=== PATIENT | female | born 1970 | race Caucasian/White ===

== ENCOUNTER 2020-04-10 04:18 | Emergency (ER) | payer MEDICAID, SELFPAY ==
[2020-04-10 04:24] VITALS: BP 122/87; PULSE 93; RESP 18; TEMP 36.1; O2SAT 96; BMI 21.6
--- NOTE | 2020-04-10 04:35 | CTR_ITS ---
PROCEDURE INFORMATION: Exam: CT Maxillofacial With Contrast Exam date and time: 04/10/2020 4:48 AM Age: 49 years old Clinical indication: Jaw pain and maxilla pain; Additional info: Dental infection evaluating for facial/dental abscess TECHNIQUE: Imaging protocol: Computed tomography images of the face with intravenous contrast. Radiation optimization: All CT scans at this facility use at least one of these dose optimization techniques: automated exposure control; mA and/or kV adjustment per patient size (includes targeted exams where dose is matched to clinical indication); or iterative reconstruction. Contrast material: OMNI 300; Contrast volume: 95 ml; Contrast route: INTRAVENOUS (IV); COMPARISON: No relevant prior studies available. RADIATION DOSE METRICS: Total DLP (mGy-cm): 754.45 FINDINGS: Orbital cavity: Orbits are normal. Globes are unremarkable. Bones/joints: No acute fracture. Paranasal sinuses: Mild right maxillary sinus disease which may be odontogenic. Soft tissues: Soft tissue swelling over the right mandible and right maxilla including the right platysma muscle with no obvious soft tissue abscess. Dental: Poor dentition with one or more areas of cavities of the enamel portion of the tooth and/or periapical lucencies/tooth abscesses. Periapical lucency/tooth abscess over the most posterior remaining right maxillary tooth which could be the 1st molar or 2 adjacent premolars with 3 roots containing periapical abscesses. Periapical lucency/tooth abscess involving the right mandibular 1st premolar. Lymph nodes: Shotty right submandibular and cervical adenopathy which is larger than the left however within normal limits by CT criteria. Probable reactive adenopathy. CT/CT facial bones w [facility] [place] [id number] IMPRESSION: 1. Poor dentition with one or more areas of cavities of the enamel portion of the tooth and/or periapical lucencies/tooth abscesses. 2. Mild right maxillary sinus disease which may be odontogenic. 3. Soft tissue swelling over the right mandible and right maxilla including the right platysma muscle with no obvious soft tissue abscess. 4. Periapical lucency/tooth abscess over the most posterior remaining right maxillary tooth which could be the 1st molar or 2 adjacent premolars with 3 roots containing periapical abscesses. 5. Periapical lucency/tooth abscess involving the right mandibular 1st premolar. 6. Shotty right submandibular and cervical adenopathy which is larger than the left however within normal limits by CT criteria. Probable reactive adenopathy. Radiation Dose CTDIVOL = (mGy): DLP = 754.45 (mGy-cm)
--- NOTE | 2020-04-10 04:45 | ED_ITS ---
Documented by User: Cecilia Lunsford 04/10/20 04:47 HPI - Dental/Oral General: Chief complaint: Dental/Oral Stated complaint: oral/dental pain on right side of face Time Seen by Provider: 04/10/20 04:32 History of Present Illness: Associated symptoms: Denies ear or mastoid pain, fever(s), odynophagia or tongue swelling Review of Systems Const: Denies: fever(s), chills, body aches, fatigue, malaise or diaphoresis Eyes: Denies: change in vision, blurry vision, photophobia, eye discomfort, eye discharge, eye redness or yellow eyes ENMT: Reports: other (Facial pain as noted in HPI.); Denies: throat pain, odynophagia, hoarseness, swelling of lips/tongue, ear or mastoid pain, ear discharge, change in hearing or nasal discharge Card: Denies: chest pain, palpitations, irregular heart rhythm, edema, lightheadedness, syncope, pre-syncope, dyspnea on exertion or orthopnea Resp: Denies: dyspnea, productive cough, non-productive cough, wheezing, hemoptysis or chest congestion GI: Denies: abdominal pain, nausea, vomiting, hematemesis, coffee ground emesis, heartburn, diarrhea, constipation, GI cramping, hematochezia or melena : Denies: flank pain, dysuria, urinary frequency, urinary urgency or hematuria Musc: Denies: neck pain, back pain, extremity pain, extremity swelling, joint pain, joint swelling, joint redness, joint warmth or joint stiffness Skin/Breast: Denies: rash, pruritus, erythema, skin pain or skin tenderness Neuro: Denies: headache(s), numbness in extremities, weakness in extremities, sensory changes, lack of coordination, difficulty walking, dizziness, vertigo, confusion, Slurred speech present or seizure-like activity [place]/Lymph: Denies: easy bruising, easy bleeding, petechiae, purpura or enlarged lymph nodes All/Imm: Denies: urticaria, throat swelling, tongue swelling, facial swelling or acute wheezing PFSH ED PFSH: Medical History No pertinent past medical history Social History Smoking and tobacco status: current every day smoker Physical Exam Const: COMMON NORMALS: no acute distress, patient oriented x3, no limitations and alert GENERAL APPEARANCE: cooperative HENMT: COMMON NORMALS: normocephalic, atraumatic, external ears normal, EAC's normal and Normal external nose present HEAD & SCALP: normal to inspection, normocephalic and atraumatic FACE & SINUS: other (Right-sided facial swelling with skin erythema) NOSE: Normal external nose present and Normal nares present EXTERNAL EAR: Yes external ears normal EXTERNAL AUDITORY CANAL: EAC's normal MOUTH: Normal oral and palatal mucosa present, lip normal and tongue normal TEETH & GINGIVA: Yes other (Overall poor dentition throughout the mouth with areas of maximal pain ove) Eye: COMMON NORMALS: Equal, round and reactive pupils present and conjunctivae normal GENERAL EYE: appearance normal, both eyes and all related structures ALIGNMENT: Yes alignment normal PERIORBITAL: periorbital findings normal EYELID: eyelids normal CONJUNCTIVA: Yes conjunctivae normal SCLERA: sclerae normal PUPIL: Yes Equal, round and reactive pupils present Neck/C-Spine: COMMON NORMALS: full ROM, no lymphadenopathy, supple, no meningeal signs and no JVD GENERAL: Yes normal visual inspection and Yes trachea midline Chest: COMMONS NORMALS: normal inspection of the chest and normal palpation of entire chest wall Resp: COMMON NORMALS: normal respiratory effort, No retractions, No use of accessory muscles and clear to auscultation bilaterally EFFORT & INSPECTION: Yes able to speak in complete sentences and Yes symmetric chest movement AUSCULTATION: clear to auscultation bilaterally, no crackles, no rales, no rhonchi and no wheezes Cardio: COMMON NORMALS: no JVD, regular rate, regular rhythm, S1 normal heart sound present and S2 normal heart sound present RATE: regular rate RHYTHM: regular rhythm HEART SOUNDS: S1 normal heart sound present, S2 normal heart sound present, no click, no gallops, no murmurs and no rubs GI: COMMON NORMALS: Soft to palpation and No hepatosplenomegaly present PALPATION: Yes Soft to palpation, No Tenderness to palpation present (GI), No Guarding due to palpation present (GI), No Rigid due to palpation, Yes No hepatosplenomegaly present, No Hernia present, No Palpable mass present and No Pulsatile mass present : COMMON NORMALS: Yes no CVA tenderness BLADDER/KIDNEY EXAM: Yes no CVA tenderness EXTERNAL FEMALE EXAM: No Hernia present Back/Pelvis: COMMON NORMALS: no CVA tenderness, thoracic and lumbar spine normal to inspection, no thoracic nor lumbar tenderness and thoraco-lumbar ROM normal Extremity: COMMON NORMALS: normal to inspection, full ROM, capillary refill normal, no joint enlargement, no clubbing, cyanosis or edema and no calf tenderness Neuro: COMMON NORMALS: patient oriented x3, CN's II-XII intact bilaterally, moves all extremities, no focal motor deficits and no sensory deficits noted SENSORIUM/ORIENTATION: Yes alert MENINGEAL SIGNS: Yes no meningeal signs SPEECH: speech normal Psych: COMMON NORMALS: mental status grossly normal, Normal thought process present, cooperative, normal affect, speech normal and activity/motor behavior normal SPEECH: Yes normal speech THOUGHT PROCESS: Normal thought process present Skin: COMMON NORMALS: no rashes or lesions noted, turgor normal, no jaundice, no petechiae and no mottling GENERAL SKIN EXAM: no rashes or lesions noted and turgor normal Course Vital Signs: Vital signs: Vital Signs Temperature 97.0 F L 04/10/20 04:24 Pulse Rate 76 04/10/20 07:16 Respiratory Rate 16 04/10/20 07:16 Blood Pressure 108/78 04/10/20 07:16 Pulse Oximetry 95 04/10/20 07:16 MDM - Dental/Oral Lab Data: Labs: Lab Results 04/10/20 04/10/20 04/10/20 Range/Units 04:55 04:55 04:55 WBC 9.6 (4.0-10.0) 10^3/ uL RBC 3.98 L (4.1-5.3) 10^6/u L Hgb 9.8 L (11.5-15.3) g/dL Hct 31.1 L (37.0-47.0) % MCV 78.1 L (81-99) fL MCH 24.6 L (28.0-34.0) pg MCHC 31.5 (30.0-36.0) g/dL RDW 16.6 H (12.1-15.1) % Plt Count 227 (130-400) 10^3/c mm MPV 11.0 H (7.4-10.4) fL Neut % (Auto) 68.9 % Lymph % (Auto) 20.9 % [place] % (Auto) 7.5 % Eos % (Auto) 2.3 % Baso % (Auto) 0.2 % Neut # (Auto) 6.62 (1.8-7.7) 10^3/u L Lymph # (Auto) 2.0 (0.8-4.8) 10^3/u L [place] # (Auto) 0.7 (0.2-0.9) 10^3/u L Eos # (Auto) 0.2 (0.0-0.8) 10^3/u L Baso # (Auto) 0.0 (0.0-0.1) 10^3/u L Nucleated RBC % (a uto) 0 % Nucleated RBCs # 0.0 /100WBC Sodium 141 (136-145) mmol/L Potassium 3.8 (3.5-5.1) mmol/L Chloride 105 (98-107) mmol/L Carbon Dioxide 24 (22-29) mmol/L Anion Gap 15.8 (5-19) BUN 6 (6-20) mg/dL Creatinine 0.6 (0.5-0.9) mg/dL GFR Calculation 105.4 (90-130) mL/min Glucose 103 (65-115) mg/dL Calculated Osmolal ity 290 (285-295) mOsm/k g Lactic Acid 1.0 (0.5-2.2) mmol/L Calcium 9.1 (8.5-10.5) mg/dL Total Bilirubin 0.3 (0.15-1.2) mg/dL AST 18 (0-32) U/L ALT 17 (0-33) U/L Alkaline Phosphata se 26 L (35-105) IU/L Total Protein 6.9 (6.6-8.7) g/dL Albumin 4.3 (3.5-5.2) g/dL Globulin 2.6 (1.3-4.6) g/dL Discharge Plan Discharge Patient Disposition: Home Clinical Impression: Dental caries Condition: Stable Prescriptions: New Augmentin 875-125 mg tablet 1 tab PO BID 10 Days Qty: 20 RF: 0 Discontinued cephalexin 750 mg capsule 750 mg PO Q12H Qty: 20 RF: 0 No Action Cleocin HCl 150 mg capsule 300 mg PO Q6H 10 Days Qty: 80 RF: 0 Gatzke 5-325 mg tablet 1 tab PO Q6H PRN (Reason: pain) 5 Days Qty: 12 RF: 0 Discharge Orders: Discharge Order (Routine); Ordered 04/10/20 Ordered By: Paramjit Hines Discharge Diet: Usual diet Discharge Activity: Increase activity as tolerated Activity Restrictions/Additional Instructions: Follow-up with your primary care doctor as needed follow-up with a dentist as soon as you are able Sign Out Sign Out Data: Patient Sign Out occurred on 04/10/20 at 06:18. Patient's care was discussed, and care was transferred from to Paramjit Hines DO. Coding Level of Care Code ED Assistant Program Manager for [facility] Fwd Exam Comprehensive Documented by User: Paramjit Hines DO 04/12/20 06:47 HPI - Dental/Oral General: Chief complaint: Dental/Oral Stated complaint: oral/dental pain on right side of face Time Seen by Provider: 04/10/20 04:32 History of Present Illness: HPI Narrative: 49-year-old female presented to the emergency room with complaint right-sided facial swelling and dental pain. Is initially seen by Dr. Suh care assumed at change of shift. She has large amount of swelling in the face is a CT pending when I assumed care. Onset (ago): hour(s) Duration: constant Severity: moderate Relieving factors: NSAIDs Exacerbating factors: nothing Context: history of dental caries Associated symptoms: Reports gum swelling; Denies ear or mastoid pain, fever(s), odynophagia, sore throat or tongue swelling Review of Systems Const: Denies: fever(s) ENMT: Denies: odynophagia or ear or mastoid pain Card: Denies: chest pain, edema, dyspnea on exertion or orthopnea Resp: Denies: dyspnea, productive cough or non-productive cough GI: Denies: abdominal pain, nausea, vomiting, hematemesis, coffee ground emesis, diarrhea, constipation, bloating, hematochezia or melena : Denies: flank pain, difficulty voiding, dysuria, urinary frequency or urinary urgency Skin/Breast: Denies: rash or pruritus All/Imm: Denies: tongue swelling PFSH ED PFSH: Medical History No pertinent past medical history Social History Smoking and tobacco status: current every day smoker Physical Exam Const: COMMON NORMALS: no acute distress GENERAL APPEARANCE: cooperative and comfortable ORIENTATION/CONSCIOUSNESS: Yes awake, Yes oriented to person, Yes oriented to place and Yes oriented to time HENMT: COMMON NORMALS: normocephalic, atraumatic and hearing grossly normal bilaterally HEAD & SCALP: normocephalic and atraumatic OTHER: Patient was falling on the right side of the face extending from zygomatic arch up through the eyelid as well as downward on the cheeks or swelling in the upper gumline on the right side no identifiable masses or abscesses. There is no submandibular lymphadenopathy Neck/C-Spine: COMMON NORMALS: no JVD Resp: COMMON NORMALS: normal respiratory effort, No retractions, No use of accessory muscles and clear to auscultation bilaterally AUSCULTATION: clear to auscultation bilaterally Cardio: COMMON NORMALS: no JVD, regular rate, regular rhythm and No murmurs present (Cardio) RATE: regular rate RHYTHM: regular rhythm Extremity: COMMON NORMALS: normal to inspection, capillary refill normal, no clubbing, cyanosis or edema, no calf tenderness and no pedal edema Neuro: SENSORIUM/ORIENTATION: Yes oriented to person, Yes oriented to place and Yes oriented to time Skin: COMMON NORMALS: no rashes or lesions noted GENERAL SKIN EXAM: no rashes or lesions noted Course Vital Signs: Vital signs: Vital Signs Temperature 97.0 F L 04/10/20 04:24 Pulse Rate 76 04/10/20 07:16 Respiratory Rate 16 04/10/20 07:16 Blood Pressure 108/78 04/10/20 07:16 Pulse Oximetry 95 04/10/20 07:16 MDM - Dental/Oral MDM Narrative: Medical decision making narrative: Reviewed CT findings discharge home with Augmentin, can continue the Gatzke, asked her to stop the Cleocin follow-up with a dentist as soon as she is able return if there are problems.. Lab Data: Labs: Lab Results 04/10/20 04/10/20 04/10/20 Range/Units 04:55 04:55 04:55 WBC 9.6 (4.0-10.0) 10^3/ uL RBC 3.98 L (4.1-5.3) 10^6/u L Hgb 9.8 L (11.5-15.3) g/dL Hct 31.1 L (37.0-47.0) % MCV 78.1 L (81-99) fL MCH 24.6 L (28.0-34.0) pg MCHC 31.5 (30.0-36.0) g/dL RDW 16.6 H (12.1-15.1) % Plt Count 227 (130-400) 10^3/c mm MPV 11.0 H (7.4-10.4) fL Neut % (Auto) 68.9 % Lymph % (Auto) 20.9 % [place] % (Auto) 7.5 % Eos % (Auto) 2.3 % Baso % (Auto) 0.2 % Neut # (Auto) 6.62 (1.8-7.7) 10^3/u L Lymph # (Auto) 2.0 (0.8-4.8) 10^3/u L [place] # (Auto) 0.7 (0.2-0.9) 10^3/u L Eos # (Auto) 0.2 (0.0-0.8) 10^3/u L Baso # (Auto) 0.0 (0.0-0.1) 10^3/u L Nucleated RBC % (a uto) 0 % Nucleated RBCs # 0.0 /100WBC Sodium 141 (136-145) mmol/L Potassium 3.8 (3.5-5.1) mmol/L Chloride 105 (98-107) mmol/L Carbon Dioxide 24 (22-29) mmol/L Anion Gap 15.8 (5-19) BUN 6 (6-20) mg/dL Creatinine 0.6 (0.5-0.9) mg/dL GFR Calculation 105.4 (90-130) mL/min Glucose 103 (65-115) mg/dL Calculated Osmolal ity 290 (285-295) mOsm/k g Lactic Acid 1.0 (0.5-2.2) mmol/L Calcium 9.1 (8.5-10.5) mg/dL Total Bilirubin 0.3 (0.15-1.2) mg/dL AST 18 (0-32) U/L ALT 17 (0-33) U/L Alkaline Phosphata se 26 L (35-105) IU/L Total Protein 6.9 (6.6-8.7) g/dL Albumin 4.3 (3.5-5.2) g/dL Globulin 2.6 (1.3-4.6) g/dL Discharge Plan Discharge Patient Disposition: Home Clinical Impression: Dental caries Condition: Stable Prescriptions: New Augmentin 875-125 mg tablet 1 tab PO BID 10 Days Qty: 20 RF: 0 Discontinued cephalexin 750 mg capsule 750 mg PO Q12H Qty: 20 RF: 0 No Action Cleocin HCl 150 mg capsule 300 mg PO Q6H 10 Days Qty: 80 RF: 0 Gatzke 5-325 mg tablet 1 tab PO Q6H PRN (Reason: pain) 5 Days Qty: 12 RF: 0 Discharge Orders: Discharge Order (Routine); Ordered 04/10/20 Ordered By: Paramjit Hines Discharge Diet: Usual diet Discharge Activity: Increase activity as tolerated Activity Restrictions/Additional Instructions: Follow-up with your primary care doctor as needed follow-up with a dentist as soon as you are able Sign Out Sign Out Data: Patient Sign Out occurred on 04/10/20 at 06:18. Patient's care was discussed, and care was transferred from to Paramjit Hines DO. Coding Level of Care Code ED Assistant Program Manager for [employer] Fwd Exam Comprehensive
[2020-04-10 05:08] VITALS: RESP 16; O2SAT 94
[2020-04-10] MEDS: morphine 4 mg/mL SDV 1 mL IVP (05:08)
[2020-04-10] MEDS: ondansetron 2 mg/ML SDV 2 mL 4 MG IVP (05:09)
[2020-04-10 05:15] VITALS: BP 104/76; PULSE 88; RESP 16; O2SAT 95
[2020-04-10] MEDS: iohexol 300 mg/mL 100 mL Btl IV (05:24)
[2020-04-10 05:26] LABS: Basophils % 0.2 %; Eosinophils # 0.2 10^3/uL (0.0-0.8); Eosinophils % 2.3 %; Hematocrit 31.1 % (37.0-47.0); Hemoglobin 9.8 g/dL (11.5-15.3); Lymphocytes % 20.9 %; Mean Corpuscular HGB Conc 31.5 g/dL (30.0-36.0); Mean Corpuscular Hemoglobin 24.6 pg (28.0-34.0); Mean Corpuscular Volume 78.1 fL (81-99); Monocytes # 0.7 10^3/uL (0.2-0.9); Monocytes % 7.5 %; Neutrophils # 6.62 10^3/uL (1.8-7.7); Neutrophils % 68.9 %; Nucleated Red Blood Cells % 0 %; Platelet Count 227 10^3/cmm (130-400); Red Blood Count 3.98 10^6/uL (4.1-5.3); Red Cell Distribution Width 16.6 % (12.1-15.1); White Blood Count 9.6 10^3/uL (4.0-10.0)
[2020-04-10] MEDS: clindamycin 900 MG/50 ML PREMIX 100 MG IV (05:40)
[2020-04-10 05:44] VITALS: BP 99/60; PULSE 84; RESP 16; O2SAT 96
[2020-04-10 06:05] LABS: Alanine Aminotransferase 17 U/L (0-33); Albumin Level 4.3 g/dL (3.5-5.2); Alkaline Phosphatase 26 IU/L (35-105); Anion Gap 15.8 (5-19); Aspartate Amino Transferase 18 U/L (0-32); Blood Urea Nitrogen 6 mg/dL (6-20); Calcium 9.1 mg/dL (8.5-10.5); Carbon Dioxide 24 mmol/L (22-29); Chloride 105 mmol/L (98-107); Globulin 2.6 g/dL (1.3-4.6); Glomerular Filtration Rate 105.4 mL/min (90-130); Glucose 103 mg/dL (65-115); Osmolality Calculated 290 mOsm/kg (285-295); Potassium 3.8 mmol/L (3.5-5.1); Sodium 141 mmol/L (136-145); Total Bilirubin 0.3 mg/dL (0.15-1.2); Total Protein 6.9 g/dL (6.6-8.7)
[2020-04-10 06:30] VITALS: BP 93/61; PULSE 88; RESP 18; O2SAT 95
[2020-04-10 07:16] VITALS: BP 108/78; PULSE 76; RESP 16; O2SAT 95
== END 2020-04-10 07:16 | disposition home or self-care (01) ==
PROVIDERS: Emergency Medicine; Emergency Provider Family Medicine
DX: K02.9 Dental caries, unspecified (principal); F17.210 Nicotine dependence, cigarettes, uncomplicated
CPT/HCPCS: 12345; 70487; 80053; 83605; 85025; 87040; 96365; 96375; 99283; J2270; J2405; J3490; Q9967

== ENCOUNTER 2020-04-11 03:58 | Emergency (ER) | payer SELFPAY ==
[2020-04-11 04:12] VITALS: BP 110/75; PULSE 103; RESP 17; TEMP 36.8; O2SAT 95; BMI 21.9
--- NOTE | 2020-04-11 04:23 | W.ED.DENTAL ---
HPI - Dental/Oral General: Chief complaint: Dental/Oral Stated complaint: tooth pain Time Seen by Provider: 04/11/20 04:00 Source: patient Mode of arrival: ambulatory Limitations: no limitations History of Present Illness: HPI Narrative: Marya is a very nice 49-year-old female who comes in complaining of right-sided upper dental pain. Patient was seen last night by me and turned over to Dr. Hines at change of shift. Unfortunately at this time that documentation has apparently been lost but the patient did have a CT scan which did not show any abscess of her face and was ultimately discharged on Augmentin by Dr. Hines. Patient states overall she feels better, her facial swelling has decreased, she has no fever but she woke up tonight in severe pain. She states she does not have anything at home for pain. Because of this pain that is what made her present here to the ER. Overall though she states until tonight she felt better. She still feels as though her swelling has decreased and overall she feels better. Associated symptoms: Denies ear or mastoid pain, fever(s), odynophagia or tongue swelling Review of Systems Const: Denies: fever(s), chills, body aches, fatigue, malaise or diaphoresis Eyes: Denies: change in vision, blurry vision, photophobia, eye discomfort, eye discharge, eye redness or yellow eyes ENMT: Reports: dental pain and other (Dental pain and facial pain); Denies: throat pain, odynophagia, hoarseness, swelling of lips/tongue, ear or mastoid pain, ear discharge, change in hearing or nasal discharge Card: Denies: chest pain, palpitations, irregular heart rhythm, edema, lightheadedness, syncope, pre-syncope, dyspnea on exertion or orthopnea Resp: Denies: dyspnea, productive cough, non-productive cough, wheezing, hemoptysis or chest congestion GI: Denies: abdominal pain, nausea, vomiting, hematemesis, coffee ground emesis, heartburn, diarrhea, constipation, GI cramping, hematochezia or melena : Denies: flank pain, dysuria, urinary frequency, urinary urgency or hematuria Musc: Denies: neck pain, back pain, extremity pain, extremity swelling, joint pain, joint swelling, joint redness, joint warmth or joint stiffness Skin/Breast: Denies: rash, pruritus, erythema, skin pain or skin tenderness Neuro: Denies: headache(s), numbness in extremities, weakness in extremities, sensory changes, lack of coordination, difficulty walking, dizziness, vertigo, confusion, Slurred speech present or seizure-like activity Gómez/Lymph: Denies: easy bruising, easy bleeding, petechiae, purpura or enlarged lymph nodes All/Imm: Denies: urticaria, throat swelling, tongue swelling, facial swelling or acute wheezing PFSH ED PFSH: Medical History No pertinent past medical history Social History Smoking and tobacco status: current every day smoker Female Reproductive History: Date of last menstrual period: 04/04/20 Physical Exam Const: COMMON NORMALS: no acute distress, patient oriented x3, no limitations and alert GENERAL APPEARANCE: cooperative HENMT: COMMON NORMALS: normocephalic, atraumatic, external ears normal, EAC's normal and Normal external nose present HEAD & SCALP: normal to inspection, normocephalic and atraumatic FACE & SINUS: normal facial exam, face symmetric and other (Minimal facial swelling over the right zygomatic arch.) NOSE: Normal external nose present and Normal nares present EXTERNAL EAR: Yes external ears normal EXTERNAL AUDITORY CANAL: EAC's normal MOUTH: Normal oral and palatal mucosa present, lip normal and tongue normal TEETH & GINGIVA: Yes poor dentition (Tenderness over right upper canine and first premolar and mandibular first ) and Yes other (Overall throughout poor dentition. No focal abscess is seen within the gin) Eye: COMMON NORMALS: Equal, round and reactive pupils present and conjunctivae normal GENERAL EYE: appearance normal, both eyes and all related structures ALIGNMENT: Yes alignment normal PERIORBITAL: periorbital findings normal EYELID: eyelids normal CONJUNCTIVA: Yes conjunctivae normal SCLERA: sclerae normal PUPIL: Yes Equal, round and reactive pupils present Neck/C-Spine: COMMON NORMALS: full ROM, no lymphadenopathy, supple, no meningeal signs and no JVD GENERAL: Yes normal visual inspection and Yes trachea midline Chest: COMMONS NORMALS: normal inspection of the chest and normal palpation of entire chest wall Resp: COMMON NORMALS: normal respiratory effort, No retractions, No use of accessory muscles and clear to auscultation bilaterally EFFORT & INSPECTION: Yes able to speak in complete sentences and Yes symmetric chest movement AUSCULTATION: clear to auscultation bilaterally, no crackles, no rales, no rhonchi and no wheezes Cardio: COMMON NORMALS: no JVD, regular rate, regular rhythm, S1 normal heart sound present and S2 normal heart sound present RATE: regular rate RHYTHM: regular rhythm HEART SOUNDS: S1 normal heart sound present, S2 normal heart sound present, no click, no gallops, no murmurs and no rubs GI: COMMON NORMALS: Soft to palpation and No hepatosplenomegaly present PALPATION: Yes Soft to palpation, No Tenderness to palpation present (GI), No Guarding due to palpation present (GI), No Rigid due to palpation, Yes No hepatosplenomegaly present, No Hernia present, No Palpable mass present and No Pulsatile mass present : COMMON NORMALS: Yes no CVA tenderness BLADDER/KIDNEY EXAM: Yes no CVA tenderness EXTERNAL FEMALE EXAM: No Hernia present Back/Pelvis: COMMON NORMALS: no CVA tenderness, thoracic and lumbar spine normal to inspection, no thoracic nor lumbar tenderness and thoraco-lumbar ROM normal Extremity: COMMON NORMALS: normal to inspection, full ROM, capillary refill normal, no joint enlargement, no clubbing, cyanosis or edema and no calf tenderness Neuro: COMMON NORMALS: patient oriented x3, CN's II-XII intact bilaterally, moves all extremities, no focal motor deficits and no sensory deficits noted SENSORIUM/ORIENTATION: Yes alert MENINGEAL SIGNS: Yes no meningeal signs SPEECH: speech normal Psych: COMMON NORMALS: mental status grossly normal, Normal thought process present, cooperative, normal affect, speech normal and activity/motor behavior normal SPEECH: Yes normal speech THOUGHT PROCESS: Normal thought process present Skin: COMMON NORMALS: no rashes or lesions noted, turgor normal, no jaundice, no petechiae and no mottling GENERAL SKIN EXAM: no rashes or lesions noted and turgor normal Course Vital Signs: Vital signs: Vital Signs Temperature 98.3 F 04/11/20 04:12 Pulse Rate 82 04/11/20 05:13 Respiratory Rate 20 H 04/11/20 05:13 Blood Pressure 109/72 04/11/20 05:13 Pulse Oximetry 94 04/11/20 05:13 MDM - Dental/Oral MDM Narrative: Medical decision making narrative: Patient's swelling to me appears the same as before but the patient is adamant that it is better. She declines any investigation such as repeat CT scan, lab work or otherwise. This time I see no sign of Alessandra's angina, abscess per physical exam or worsening of the infection. I am going to change the patient to clindamycin which I think works slightly better for dental infections and the patient will switch to this. She declined an IV booster dose of this. She states she simply wanted to come in to have her pain issues addressed and then to go home. She is working on try to make an appointment with a dentist. I will going give the patient dose of Troy here. Discharge Plan Discharge Patient Disposition: Home Clinical Impression: Dental abscess Condition: Stable Prescriptions: New Cleocin HCl 150 mg capsule 300 mg PO Q6H 10 Days Qty: 80 RF: 0 Troy 5-325 mg tablet 1 tab PO Q6H PRN (Reason: pain) 5 Days Qty: 12 RF: 0 No Action Augmentin 875-125 mg tablet 1 tab PO BID 10 Days Qty: 20 RF: 0 Discharge Orders: Discharge Order (Routine); Ordered 04/11/20 Ordered By: Cecilia Lunsford Discharge Diet: Soft Mechanical Discharge Activity: Increase activity as tolerated Patient Instructions: Dental Abscess (ED) Activity Restrictions/Additional Instructions: Please return to the ER immediately for any of the signs or symptoms listed on your discharge instruction sheets, worsening/changing of your symptoms, you are not getting better as quickly as expected, or for ANY other cause or concerns. Return to the ER for return of your facial swelling, fever, vomiting, difficulty swallowing, or for any other cause for concern. Be certain to follow-up with a dentist of your choice as soon as possible for recheck. Coding Level of Care Code ED Can Closing Machine Tender for Zahira Fwd Exam Comprehensive
[2020-04-11] MEDS: ibuprofen 200 mg Tablet 400 MG PO (04:59)
[2020-04-11] MEDS: clindamycin 150 mg Capsule 450 MG PO (04:59)
[2020-04-11] MEDS: HYDROcodone-acetaminophen 5-325 mg Tablet 1 TAB PO (04:59)
[2020-04-11 05:13] VITALS: BP 109/72; PULSE 82; RESP 20; O2SAT 94
--- NOTE | 2020-04-11 05:13 | PC.NURSE ---
This RN agrees with solid die cutter assessment
== END 2020-04-11 05:15 | disposition home or self-care (01) ==
PROVIDERS: Emergency Provider Emergency Medicine
DX: K04.7 Periapical abscess without sinus (principal); F17.210 Nicotine dependence, cigarettes, uncomplicated
CPT/HCPCS: 12345; 99281; 99283

== ENCOUNTER 2020-04-11 11:02 | Emergency (ER) | payer SELFPAY ==
[2020-04-11 11:10] VITALS: BP 119/81; PULSE 104; RESP 18; TEMP 36.7; O2SAT 95; BMI 21.9
--- NOTE | 2020-04-11 11:33 | W.ED.DENTAL ---
HPI - Dental/Oral General: Chief complaint: Dental/Oral Stated complaint: Infection in Mouth Time Seen by Provider: 04/11/20 11:26 Source: patient Mode of arrival: ambulatory Limitations: no limitations History of Present Illness: HPI Narrative: 49-year-old female states she has been having dental pain and has a dental abscess to her right upper gumline over the last 3 days. She has been on clindamycin but states that the abscess is still there. She states she had swelling and pain. States pain is sharp in nature and rates it an 8 out of 10. Denies any worsening improving factors. Denies any vomiting. Denies any difficulty swallowing or opening her mouth. Associated symptoms: Denies fever(s) Review of Systems Const: Denies: fever(s), chills, body aches or change in appetite Eyes: Denies: blurry vision or eye discomfort ENMT: Reports: dental pain Card: Denies: chest pain Resp: Denies: dyspnea GI: Denies: abdominal pain, nausea, vomiting or diarrhea : Denies: dysuria Musc: Denies: neck pain or back pain Skin/Breast: Denies: rash Neuro: Denies: headache(s) Psych: Denies: depression Gómez/Lymph: Denies: easy bruising All/Imm: Denies: urticaria PFSH ED PFSH: Medical History No pertinent past medical history Social History Smoking and tobacco status: current every day smoker Female Reproductive History: Date of last menstrual period: 04/04/20 Physical Exam Const: COMMON NORMALS: no acute distress, patient oriented x3 and healthy appearing HENMT: COMMON NORMALS: normocephalic and atraumatic HEAD & SCALP: normocephalic and atraumatic OTHER: Abscess over right upper canine Eye: COMMON NORMALS: Equal, round and reactive pupils present and EOMs intact bilaterally PUPIL: Yes Equal, round and reactive pupils present Neck/C-Spine: COMMON NORMALS: full ROM and supple Chest: COMMONS NORMALS: normal inspection of the chest and normal palpation of entire chest wall Resp: COMMON NORMALS: normal respiratory effort, No retractions, No use of accessory muscles and clear to auscultation bilaterally AUSCULTATION: clear to auscultation bilaterally Cardio: COMMON NORMALS: regular rate, regular rhythm and No murmurs present (Cardio) RATE: regular rate RHYTHM: regular rhythm GI: COMMON NORMALS: Normal to inspection, nondistended, normoactive bowel sounds present, Soft to palpation, non-tender and no masses PALPATION: Yes Soft to palpation Extremity: COMMON NORMALS: normal to inspection and full ROM Neuro: COMMON NORMALS: patient oriented x3, moves all extremities and no focal motor deficits Psych: COMMON NORMALS: mental status grossly normal, Normal thought process present and cooperative THOUGHT PROCESS: Normal thought process present Skin: COMMON NORMALS: no rashes or lesions noted and no wounds GENERAL SKIN EXAM: no rashes or lesions noted Procedures Abscess I/D Site: other (dental) Side (if applicable): right Local Anesthetic: lidocaine 1% Amount of anesthesia used (mL): 2 Technique: other (incised with 18 guage) Irrigation: No Packing used?: none Course Vital Signs: Vital signs: Vital Signs Temperature 98.0 F 04/11/20 11:10 Pulse Rate 104 H 04/11/20 11:10 Respiratory Rate 18 04/11/20 11:10 Blood Pressure 119/81 04/11/20 11:10 Pulse Oximetry 95 04/11/20 11:10 MDM - Dental/Oral MDM Narrative: Medical decision making narrative: Patient presents with a dental abscess. I drained it with an 18-gauge needle had a moderate amount of purulent fluid. She is to continue her clindamycin. She has no trismus and is well-appearing here. She is to follow-up with dentist and return if worsening. She understands agrees to plan. Discharge Plan Discharge Patient Disposition: Home Clinical Impression: Dental abscess Condition: Stable Prescriptions: No Action Cleocin HCl 150 mg capsule 300 mg PO Q6H 10 Days Qty: 80 RF: 0 Tenaha 5-325 mg tablet 1 tab PO Q6H PRN (Reason: pain) 5 Days Qty: 12 RF: 0 Augmentin 875-125 mg tablet 1 tab PO BID 10 Days Qty: 20 RF: 0 Discharge Orders: Discharge Order (Routine); Ordered 04/11/20 Ordered By: Jamee Thomason Discharge Diet: Advance as tolerated Discharge Activity: Resume usual activity Patient Instructions: Dental Abscess (ED) Coding Level of Care Code ED Sales Solutions Associate for Zahira Ritter
== END 2020-04-11 11:48 | disposition home or self-care (01) ==
LOC: ER 22:30
PROVIDERS: Emergency Provider Emergency Medicine
DX: K04.7 Periapical abscess without sinus (principal); F17.210 Nicotine dependence, cigarettes, uncomplicated
CPT/HCPCS: 12345; 41800; 99281; 99282

== ENCOUNTER 2022-01-30 17:15 | Emergency (ER) | payer MEDICAID, SELFPAY ==
[2022-01-30 17:30] VITALS: BMI 21.6
--- NOTE | 2022-01-30 17:37 | XRR_ITS ---
PROCEDURE INFORMATION: Exam: XR Left Finger(s) Exam date and time: 01/30/2022 5:42 PM Age: 51 years old Clinical indication: Injury or trauma; Other: Dog bite; Ring finger; Left; Additional info: Dog bite/partial amputation TECHNIQUE: Imaging protocol: Radiologic exam of the Left fingers. Views: Minimum 2 views. COMPARISON: No relevant prior studies available. FINDINGS: Bones/joints: There is a traumatic amputation beyond the mid diaphysis of the distal phalanx of the 4th finger on the left hand. No dislocation. Normal bone mineralization. No joint effusion. Joint spaces are maintained. Soft tissues: No radiopaque foreign body. XR/XR finger LT min 2V [id number] IMPRESSION: There is a traumatic amputation beyond the mid diaphysis of the distal phalanx of the 4th finger on the left hand.
[2022-01-30] MEDS: ceFAZolin 1,000 MG in sodium chloride 0.9% (plus) 50 ML 100 MG IV (17:59)
--- NOTE | 2022-01-30 18:13 | ED_ITS ---
Documented by User: SHANNAN Jauregui 01/30/22 19:34 HPI - Animal Bite General: Chief Complaint: Animal Bite Stated Complaint: left finger laceration Time Seen by Provider: 01/30/22 17:34 History of Present Illness: 51-year-old female in for a dog bite. She reports that her dog was in a dog fight and she was trying to break it up and the dog clamped down on her finger. She reports that the dog is up-to-date on tetanus and vaccinations. She reports that she has had a tetanus vaccine in the past 5 years. She reports that the tip of her finger is gone and part of the bone. Associated symptoms: Deny chills or fever(s) Review of Systems Const: Denies: fever(s) or chills Musc: Reports: other (Left fourth finger partial amputation) [facility] ED PFSH: Medical History No pertinent past medical history Social History Smoking and tobacco status: current every day smoker Female Reproductive History: Date of last menstrual period: 04/04/20 Physical Exam Const: COMMON NORMALS: patient oriented x3 and alert Resp: COMMON NORMALS: normal respiratory effort Extremity: OTHER: Patient's left fourth finger there is a partial amputation at the distal finger. Just distal to the DIP joint. Bleeding is controlled at this time. There is a soft tissue flap that is jagged with some perfusion noted to the tissue. There is a dusky area along the dorsal aspect of the finger. Patient does have some flexion at the DIP joint. Neuro: COMMON NORMALS: patient oriented x3 SENSORIUM/ORIENTATION: Yes alert Procedures Laceration traumatic amputation finger: Site: upper extremity (Left hand fourth finger distal phalanx-traumatic amputation) Local Anesthetic: lidocaine 1% Amount of anesthesia used (mL): 2.5 Pre-repair: irrigated extensively Size (cm): 4-0 Number of sutures: 3 Technique: simple, interrupted Course ED course: 175?consulted Dr. Hines who looked at the finger and advised to start a gram of Ancef. He advised after we see the x-ray we may call Dr. Olmos to consult for surgery. 1800?x-ray shows There is a traumatic amputation beyond the mid diaphysis of the distal phalanx of the 4th finger on the left hand. Dr. Hines advised to consult Dr. Olmos 1804-I spoke with Dr. Olmos. He requested that I send pictures of the x-ray and the finger. Dr. Olmos advised to start the patient on Augmentin. Using a digital block try to fully irrigate the wound. Use a nonstick dressing with Xeroform and padded dressing. Part of the flap could be tacked up with sutures if needed. He advised to have the patient follow-up with him in office on Wednesday and he will likely schedule her for a possible revision amputation early next week. Consultations: Consultation #1: [id number]?consulted Dr. Hines who looked at the finger and advised to start a gram of Ancef. He advised after we see the x-ray we may call Dr. Olmos to consult for surgery. 1800?x-ray shows There is a traumatic amputation beyond the mid diaphysis of the distal phalanx of the 4th finger on the left hand. Dr. Hines advised to consult Dr. Olmos Consultation #2: [id number]-I spoke with Dr. Olmos. He requested that I send pictures of the x-ray and the finger. Dr. Olmos advised to start the patient on Augmentin. Using a digital block try to fully irrigate the wound. Use a nonstick dressing with Xeroform and padded dressing. Part of the flap could be tacked up with sutures if needed. He advised to have the patient follow-up with him in office on Wednesday and he will likely schedule her for a possible revision amputation early next week. Vital Signs: Vital signs: Vital Signs Pulse Rate 85 01/30/22 19:49 Respiratory Rate 18 01/30/22 19:49 Blood Pressure 130/78 01/30/22 19:49 Pulse Oximetry 98 01/30/22 19:49 MDM - Animal Bite Medical Decision Making 51-year-old female comes to the ER status posttraumatic amputation of the distal tip of her left finger. She reports that she was breaking up a dog fight. She reports that the dogs fighting were hers 1 was a boxer pit mix and the other was a Chihuahua. She reports getting bit by the Chihuahua. She reports that both animals are up-to-date on vaccinations including rabies vaccination. She reports that she has had a tetanus vaccination within the past 3 years. I consulted with Dr. Hines and then after the x-ray I consulted with Dr. Olmos. Dr. Olmos requested that the wound be cleansed and said that we could loosely tack it down with sutures. He requested the patient have a nonstick padded dressing and be placed on Augmentin antibiotic. He wants the patient to see him in office on Wednesday where he will discuss doing a revised amputation. 1 dose of Ancef given in here. The first dose of p.o. Augmentin given in ER. Send patient out with a prescription to start twice daily dosing tomorrow. The wound was cleaned and the flap was tacked over loosely. Padded dressing was applied. I discussed aftercare with the patient. I discussed her need to follow-up with Dr. Olmos on Wednesday. A consult was sent to case management to make sure that patient gets into see Dr. Olmos on Wednesday. The patient verbalized understanding of all instructions. Lab Data Radiology Impressions Finger X-Ray 01/30/22 17:37 IMPRESSION: There is a traumatic amputation beyond the mid diaphysis of the distal phalanx of the 4th finger on the left hand. Discharge Plan Discharge Patient Disposition: Home Clinical Impression: Partial traumatic amputation of finger through phalanx, Bite by animal Condition: Stable Prescriptions: New amoxicillin-pot clavulanate 875-125 mg tablet 1 tab PO BID Qty: 20 0RF hydrocodone-acetaminophen 5-325 mg tablet 1 tab PO Q8H PRN (Reason: pain) Qty: 9 0RF Discharge Orders: Discharge ED (Routine); Ordered 01/30/22 Ordered By: Rita Suarez Discharge Diet: Usual diet Patient Instructions: Finger Amputation (ED) Activity Restrictions/Additional Instructions: Keep finger in the dressing. Follow-up with Dr. Olmos on Wednesday. I would call his office first thing Wednesday morning if you have not heard from anybody. Return to the ER for any new or worsening symptoms. Start antibiotic tomorrow twice a day for 10 days. Your first dose was given tonight in the ER. 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 [employer] Fwd Exam Expanded Problem Focused Documented by User: Juan F AlarconDO 01/31/22 02:43 HPI - Animal Bite General: Chief Complaint: Animal Bite Stated Complaint: left finger laceration Time Seen by Provider: 01/30/22 17:34 PFSH ED PFSH: Medical History No pertinent past medical history Social History Smoking and tobacco status: current every day smoker Course Vital Signs: Vital signs: Vital Signs Pulse Rate 85 01/30/22 19:49 Respiratory Rate 18 01/30/22 19:49 Blood Pressure 130/78 01/30/22 19:49 Pulse Oximetry 98 01/30/22 19:49 MDM - Animal Bite Medical Decision Making 51-year-old female comes to the ER status posttraumatic amputation of the distal tip of her left finger. She reports that she was breaking up a dog fight. She reports that the dogs fighting were hers 1 was a boxer pit mix and the other was a Chihuahua. She reports getting bit by the Chihuahua. She reports that both animals are up-to-date on vaccinations including rabies vaccination. She r eports that she has had a tetanus vaccination within the past 3 years. I consulted with Dr. Hines and then after the x-ray I consulted with Dr. Olmos. Dr. Olmos requested that the wound be cleansed and said that we could loosely tack it down with sutures. He requested the patient have a nonstick padded dressing and be placed on Augmentin antibiotic. He wants the patient to see him in office on Wednesday where he will discuss doing a revised amputation. 1 dose of Ancef given in here. The first dose of p.o. Augmentin given in ER. Send patient out with a prescription to start twice daily dosing tomorrow. The wound was cleaned and the flap was tacked over loosely. Padded dressing was applied. I discussed aftercare with the patient. I discussed her need to follow-up with Dr. Olmos on Wednesday. A consult was sent to case management to make sure that patient gets into see Dr. Olmos on Wednesday. The patient verbalized understanding of all instructions. This patient was originally seen by STORM Hester.? I agree with her history, evaluation, and treatment. I have evaluated the patient as well. Lab Data Radiology Impressions Finger X-Ray 01/30/22 17:37 IMPRESSION: There is a traumatic amputation beyond the mid diaphysis of the distal phalanx of the 4th finger on the left hand. Discharge Plan Discharge Patient Disposition: Home Clinical Impression: Partial traumatic amputation of finger through phalanx, Bite by animal Condition: Stable Prescriptions: New amoxicillin-pot clavulanate 875-125 mg tablet 1 tab PO BID Qty: 20 0RF hydrocodone-acetaminophen 5-325 mg tablet 1 tab PO Q8H PRN (Reason: pain) Qty: 9 0RF Discharge Orders: Discharge ED (Routine); Ordered 01/30/22 Ordered By: Rita Suarez Discharge Diet: Usual diet Patient Instructions: Finger Amputation (ED) Activity Restrictions/Additional Instructions: Keep finger in the dressing. Follow-up with Dr. Olmos on Wednesday. I would call his office first thing Wednesday morning if you have not heard from anybody. Return to the ER for any new or worsening symptoms. Start antibiotic tomorrow twice a day for 10 days. Your first dose was given tonight in the ER. 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
[2022-01-30] MEDS: amoxicillin-clav 875-125 mg Tablet 1 TAB PO (19:21)
[2022-01-30 19:49] VITALS: BP 130/78; PULSE 85; RESP 18; O2SAT 98
--- NOTE | 2022-02-03 11:20 | DCPLANNER ---
Addendum entered by Paige Montano 02/05/22 08:42: Patient had a follow up appointment scheduled for 02.03.[address] Olmos at ortho - patient did attend appointment. Original Note: marketing area manager had message to schedule a follow up appointment for patient with ortho. marketing area manager sent patients information to the front office staff at ortho. Patients information will be printed and reviewed. Clinic will call patient with appointment information.
== END 2022-01-30 19:50 | disposition home or self-care (01) ==
PROVIDERS: Emergency Provider Nurse Practitioner Family
DX: S68.125A Partial traumatic metacarpophalangeal amputation of left ring finger, initial encounter (principal); W54.0XXA Bitten by dog, initial encounter; F17.210 Nicotine dependence, cigarettes, uncomplicated
CPT/HCPCS: 12001; 73140; 96365; 96366; 99284; J0690

== ENCOUNTER → 2022-03-31 07:57 | Outpatient (BNVA) | payer MEDICAID, SELFPAY | PROVIDERS: Visit Provider Student in an Organized Health Care Education/Training Program | DX: S68.629A Partial traumatic transphalangeal amputation of unspecified finger, initial encounter (principal); W54.0XXA Bitten by dog, initial encounter | CPT/HCPCS: 73130 ==